=== PATIENT | male | born 2000 | race Caucasian/White ===

== ENCOUNTER 2019-10-01 21:42 | Emergency (ER) | payer SELFPAY ==
--- NOTE | 2019-10-01 22:17 | RAD ---
LEFT WRIST 3 VIEWS: HISTORY: Left wrist pain, injury FINDINGS: There is a nondisplaced fracture involving the scaphoid bone.
[2019-10-01] MEDS ORDERED: Ketorolac Tromethamine 30 MG/ML VIAL ONE (22:34)
== END 2019-10-01 23:40 | disposition home or self-care (01) ==
LOC: ERS 21:42
DX: S62.002A Unspecified fracture of navicular [scaphoid] bone of left wrist, initial encounter for closed fracture (principal); S50.312A Abrasion of left elbow, initial encounter; J45.909 Unspecified asthma, uncomplicated; Z87.891 Personal history of nicotine dependence; V89.2XXA Person injured in unspecified motor-vehicle accident, traffic, initial encounter
CPT/HCPCS: 96372; J1885